=== PATIENT | female | born 1955 | race Caucasian/White ===

== ENCOUNTER 2022-03-22 15:21 | Inpatient (IN) ==
[2022-03-22] MEDS ORDERED: Isovue-370 500 ML BOTTLE IVP ONE ×2 (15:42→20:11)
[2022-03-22] MEDS ORDERED: Aspirin 325 MG TABLET PO ONE (15:43)
[2022-03-22 16:55] LABS: Basophils # 0.1 K/mcL (0.0-0.2); Basophils % 1.1 %; Monocytes % 9.1 %; Red Cell Distribution Width 17.2 % (11.5-14.5)
[2022-03-22 16:59] LABS: Eosinophils % 0.5 %; Hemoglobin 18.4 g/dL (11.5-15.4); Immature Granulocytes % 0.4 % (0-4); Lymphocytes # 1.5 K/mcL (0.6-4.6); Lymphocytes % 19.7 %; Mean Corpuscular Volume 87.9 fL (83.0-100.0); Monocytes # 0.7 K/mcL (0.0-1.3); Neutrophils # 5.2 K/mcL (1.6-8.9); Platelet Count 172 K/mcL (140-400); Red Blood Count 6.35 M/mcL (3.82-4.97); Segmented Neutrophils % 69.2 %; White Blood Count 7.5 K/mcL (4.3-11.1)
[2022-03-22 17:01] LABS: Hematocrit 55.8 % (35.3-44.9)
[2022-03-22 17:14] LABS: Albumin 3.4 g/dL (3.5-5.7); Albumin/Globulin Ratio 0.9 (1.1-2.2); Bilirubin,Indirect 1.9 mg/dL (0.0-1.0); Bilirubin,Total 2.9 mg/dL (0.3-1.0); Globulin 3.7 g/dL (2.4-3.5); Total Protein 7.1 g/dL (6.4-8.9)
[2022-03-22 18:06] LABS: INR 1.1; Prothrombin Time 12.3 Seconds (9.4-12.1)
[2022-03-22 18:09] LABS: Activated Partial Thrombo Time 26.6 Seconds (26.0-36.0)
[2022-03-22] MEDS ORDERED: Potassium Chloride Elixir 20 MEQ/15 ML UDC PO ONE (18:31)
[2022-03-22 19:49] LABS: BUN/Creatinine Ratio 26 (6-26); Blood Urea Nitrogen 25 mg/dL (8-23); Calcium 9.8 mg/dL (8.6-10.3); Carbon Dioxide 28 mEq/L (23-29); Chloride 96 mEq/L (98-107); Glucose 114 mg/dL (70-105); Osmolality,Calculated 293 (280-300); Sodium 139 mEq/L (136-145); eGFR For African Americans > 60 (> 60); eGFR For Non-African Americans 58 (> 60)
[2022-03-22] MEDS ORDERED: *HR* OxyCODONE Immed Rel 5 MG TABLET PO PRN (22:35)
[2022-03-22] MEDS ORDERED: Naloxone 0.4 MG/ML INJ IVP PRN (22:35)
[2022-03-22] MEDS ORDERED: Melatonin 3 MG TABLET PO PRN (22:35)
[2022-03-22] MEDS ORDERED: Acetaminophen 325 MG TABLET PO PRN (22:35)
[2022-03-22] MEDS ORDERED: *HR* HYDROcodone/Acet 5/325 mg TABLET PO PRN (22:35)
[2022-03-22] MEDS ORDERED: Perflutren Lipid Microsphere 1.3 ML in 0.9 % Sodium Chloride 8.7 ML IVP PRN (22:39)
[2022-03-22] MEDS ORDERED: Ipratropium/Albuterol Neb 3 ML IH PRN (23:07)
[2022-03-22] MEDS ORDERED: GI Cocktail 40 ML EACH PO ONE (23:41)
[2022-03-22] MEDS: 0.9 % Sodium Chloride 1,000 ML IVC SCH (23:50)
[2022-03-22] MEDS: Ondansetron ODT 4 MG TAB.RAPDIS SL PRN (23:50)
[2022-03-23 00:53] LABS: Adenovirus Not Detected (Not Detect); Bordetella Pertussis Not Detected (Not Detect); Chlamydophila pneumoniae Not Detected (Not Detect); Coronavirus 229E Not Detected (Not Detect); Coronavirus HKU1 Not Detected (Not Detect); Coronavirus NL63 Not Detected (Not Detect); Coronavirus OC43 Not Detected (Not Detect); Human Metapneumovirus Not Detected (Not Detect); Human Rhinovirus/Enterovirus Not Detected (Not Detect); Influenza A Subtype 2009 H1 Not Detected (Not Detect); Influenza B Not Detected (Not Detect); Mycoplasma pneumoniae Not Detected (Not Detect); Parainfluenza Virus 1 Not Detected (Not Detect); Parainfluenza Virus 2 Not Detected (Not Detect); Parainfluenza Virus 3 Not Detected (Not Detect); Parainfluenza Virus 4 Not Detected (Not Detect); Respiratory Syncytial Virus Not Detected (Not Detect); SARS-CoV-2 Not Detected (Not Detect)
[2022-03-23 03:26] LABS: Basophils # 0.1 K/mcL (0.0-0.2); Basophils % 0.9 %; Eosinophils # 0.1 K/mcL (0.0-0.6); Hematocrit 47.6 % (35.3-44.9); Hemoglobin 16.3 g/dL (11.5-15.4); Immature Granulocytes % 1.5 % (0-4); Lymphocytes # 1.6 K/mcL (0.6-4.6); Lymphocytes % 23.1 %; Mean Corpuscular HGB Conc 34.2 g/dL (31.6-35.5); Mean Corpuscular Volume 84.7 fL (83.0-100.0); Mean Platelet Volume 11.5 fL (9.4-12.4); Monocytes # 0.6 K/mcL (0.0-1.3); Neutrophils # 4.4 K/mcL (1.6-8.9); Platelet Count 173 K/mcL (140-400); Red Blood Count 5.62 M/mcL (3.82-4.97); Red Cell Distribution Width 15.4 % (11.5-14.5); Segmented Neutrophils % 64.5 %; White Blood Count 6.8 K/mcL (4.3-11.1)
[2022-03-23 03:41] LABS: Estimated Average Glucose 111 mg/dl; Hemoglobin A1C 5.5 %
[2022-03-23 04:36] LABS: BUN/Creatinine Ratio 26 (6-26); Blood Urea Nitrogen 22 mg/dL (8-23); Calcium 8.6 mg/dL (8.6-10.3); Carbon Dioxide 21 mEq/L (23-29); Chloride 100 mEq/L (98-107); Chol/HDL Ratio 4.7 (0-4.9); Cholesterol 210 mg/dL (< 200); Glucose 95 mg/dL (70-105); HDL Cholesterol 45 mg/dL (40-59); LDL Cholesterol,Calculated 128 mg/dL (< 100); Osmolality,Calculated 287 (280-300); Phosphorous 2.8 mg/dL (2.7-4.5); Sodium 137 mEq/L (136-145); Thyroid Stimulating Hormone 0.761 mcIU/mL (0.340-5.600); Triglycerides 187 mg/dL (< 150); eGFR For African Americans > 60 (> 60); eGFR For Non-African Americans > 60 (> 60)
[2022-03-23] MEDS ORDERED: Regadenoson 0.4 MG/5 ML SYRINGE IVP ONE (05:50)
[2022-03-23 06:19] LABS: Bacteria,Urine Few per hpf (None-Few); Bilirubin,Urine Small (Negative); Blood,Urine Moderate (Negative); Clarity,Urine Turbid (Clear); Color,Urine Orange (Yellow); Glucose,Urine (UA) Normal (Normal); Ketones,Urine Trace mg/dL (Negative); Leukocyte Esterase,Urine Large (Negative); Mucus,Urine Few per lpf (None-Few); Nitrite,Urine Negative (Negative); PH,Urine 6.5 pH Units (5.0-8.0); Protein,Urine 70 mg/dL (Neg-Trace); RBC,Urine 15-30 per hpf (0-3); Specific Gravity,Urine > 1.030 (1.010-1.025); Squamous Epithelial Cell,Urine Few per hpf (None-Few); WBC,Urine TNTC per hpf (0-3)
[2022-03-23] MEDS: Aspirin 81 MG TAB.CHEW PO SCH (11:33)
[2022-03-23] MEDS: Potassium Chloride Elixir 20 MEQ/15 ML UDC PO SCH ×2 (11:39→15:45)
[2022-03-23] MEDS ORDERED: *HR* FentaNYL (PF) 100 MCG/2 ML VIAL ONE (11:48)
[2022-03-23] MEDS ORDERED: *HR* Midazolam HCl 2 MG/2 ML VIAL ONE (11:48)
[2022-03-23] MEDS ORDERED: Heparin 1,000 UNITS/500 mL 500 ML ONE (11:48)
[2022-03-23] MEDS ORDERED: 0.9 % Sodium Chloride 2,000 ML ONE (11:48)
[2022-03-23] MEDS ORDERED: Nitroglycerin 1,000 MCG/5 ML VIAL IV ONE (11:49)
[2022-03-23] MEDS ORDERED: *HR* Heparin 10,000 UNIT/10 ML VIAL ONE (11:49)
[2022-03-23] MEDS ORDERED: ISOVUE-370 200 ML INFUS..BTL ONE (11:49)
[2022-03-23] MEDS: 0.9 % Sodium Chloride 1,000 ML IVC SCH (17:50)
[2022-03-23] MEDS: *HR* Rivaroxaban 10 MG TABLET PO SCH (18:06)
[2022-03-23] MEDS: Ondansetron ODT 4 MG TAB.RAPDIS SL PRN (22:52)
[2022-03-24 04:34] LABS: Basophils # 0.1 K/mcL (0.0-0.2); Basophils % 0.8 %; Eosinophils # 0.2 K/mcL (0.0-0.6); Eosinophils % 2.7 %; Hematocrit 44.5 % (35.3-44.9); Immature Granulocytes % 0.6 % (0-4); Lymphocytes # 1.3 K/mcL (0.6-4.6); Mean Corpuscular HGB Conc 32.6 g/dL (31.6-35.5); Mean Corpuscular Hemoglobin 28.2 pg (28.0-33.3); Mean Corpuscular Volume 86.4 fL (83.0-100.0); Mean Platelet Volume 10.9 fL (9.4-12.4); Monocytes # 0.6 K/mcL (0.0-1.3); Monocytes % 8.9 %; Neutrophils # 4.1 K/mcL (1.6-8.9); Platelet Count 152 K/mcL (140-400); Red Blood Count 5.15 M/mcL (3.82-4.97); Red Cell Distribution Width 15.9 % (11.5-14.5); White Blood Count 6.3 K/mcL (4.3-11.1)
[2022-03-24 04:35] LABS: Hemoglobin 14.5 g/dL (11.5-15.4)
[2022-03-24 05:08] LABS: BUN/Creatinine Ratio 27 (6-26); Blood Urea Nitrogen 19 mg/dL (8-23); Calcium 8.4 mg/dL (8.6-10.3); Carbon Dioxide 27 mEq/L (23-29); Chloride 103 mEq/L (98-107); Glucose 102 mg/dL (70-105); Osmolality,Calculated 282 (280-300); Potassium 3.6 mEq/L (3.5-5.1); Sodium 135 mEq/L (136-145); eGFR For African Americans > 60 (> 60); eGFR For Non-African Americans > 60 (> 60)
[2022-03-24] MEDS ORDERED: *HR* Enoxaparin 40 MG/0.4 ML SYRINGE SQ SCH (06:00)
[2022-03-24] MEDS: Aspirin 81 MG TAB.CHEW PO SCH (09:06)
[2022-03-24] MEDS: Sucralfate 1 GM TABLET PO SCH ×3 (11:53→21:41)
[2022-03-24] MEDS: *HR* Rivaroxaban 10 MG TABLET PO SCH (17:28)
[2022-03-25] MEDS: Ondansetron ODT 4 MG TAB.RAPDIS SL PRN (00:14)
[2022-03-25] MEDS: Sucralfate 1 GM TABLET PO SCH ×4 (06:34→22:03)
[2022-03-25 06:45] LABS: BUN/Creatinine Ratio 21 (6-26); Blood Urea Nitrogen 16 mg/dL (8-23); Calcium 8.4 mg/dL (8.6-10.3); Carbon Dioxide 26 mEq/L (23-29); Chloride 102 mEq/L (98-107); Glucose 112 mg/dL (70-105); Osmolality,Calculated 276 (280-300); Potassium 3.6 mEq/L (3.5-5.1); Sodium 132 mEq/L (136-145); eGFR For African Americans > 60 (> 60); eGFR For Non-African Americans > 60 (> 60)
[2022-03-25] MEDS: Aspirin 81 MG TAB.CHEW PO SCH (09:17)
[2022-03-25] MEDS: 0.9 % Sodium Chloride 1,000 ML IVC SCH ×2 (11:29→22:03)
[2022-03-25] MEDS: *HR* Rivaroxaban 10 MG TABLET PO SCH (17:07)
[2022-03-25] MEDS: Pantoprazole 40 MG VIAL IVP SCH (17:08)
[2022-03-26 04:03] LABS: BUN/Creatinine Ratio 21 (6-26); Blood Urea Nitrogen 15 mg/dL (8-23); Calcium 7.9 mg/dL (8.6-10.3); Carbon Dioxide 24 mEq/L (23-29); Chloride 104 mEq/L (98-107); Glucose 101 mg/dL (70-105); Osmolality,Calculated 279 (280-300); Potassium 3.5 mEq/L (3.5-5.1); Sodium 134 mEq/L (136-145); eGFR For African Americans > 60 (> 60); eGFR For Non-African Americans > 60 (> 60)
[2022-03-26] MEDS: Pantoprazole 40 MG VIAL IVP SCH ×2 (05:05→17:01)
[2022-03-26] MEDS: 0.9 % Sodium Chloride 1,000 ML IVC SCH ×2 (08:02→17:00)
[2022-03-26] MEDS: Aspirin 81 MG TAB.CHEW PO SCH (08:06)
[2022-03-26] MEDS: Sucralfate 1 GM TABLET PO SCH ×4 (08:06→20:15)
[2022-03-26] MEDS ORDERED: Lidocaine -MPF 2% 2 ML VIAL ONE (11:35)
[2022-03-26] MEDS ORDERED: *HR* Propofol 200 MG/20 ML VIAL IVP ONE ×2 (11:35→12:40)
[2022-03-26] MEDS: *HR* Rivaroxaban 10 MG TABLET PO SCH (17:10)
[2022-03-27] MEDS: 0.9 % Sodium Chloride 1,000 ML IVC SCH (03:10)
[2022-03-27 04:22] LABS: BUN/Creatinine Ratio 19 (6-26); Blood Urea Nitrogen 13 mg/dL (8-23); Calcium 7.7 mg/dL (8.6-10.3); Carbon Dioxide 23 mEq/L (23-29); Chloride 106 mEq/L (98-107); Glucose 98 mg/dL (70-105); Osmolality,Calculated 286 (280-300); Potassium 3.4 mEq/L (3.5-5.1); Sodium 138 mEq/L (136-145); eGFR For African Americans > 60 (> 60); eGFR For Non-African Americans > 60 (> 60)
[2022-03-27] MEDS: Pantoprazole 40 MG VIAL IVP SCH (05:09)
[2022-03-27] MEDS: Sucralfate 1 GM TABLET PO SCH (07:37)
[2022-03-27] MEDS: Aspirin 81 MG TAB.CHEW PO SCH (07:38)
[2022-03-27] MEDS ORDERED: Moderna Covid-19 Vaccine 100MCG/0.5mL IM ONE (08:13)
[2022-03-27 09:10] LABS: Adenovirus Not Detected (Not Detect); Bordetella Pertussis Not Detected (Not Detect); Chlamydophila pneumoniae Not Detected (Not Detect); Coronavirus 229E Not Detected (Not Detect); Coronavirus HKU1 Not Detected (Not Detect); Coronavirus NL63 Not Detected (Not Detect); Coronavirus OC43 Not Detected (Not Detect); Human Metapneumovirus Not Detected (Not Detect); Human Rhinovirus/Enterovirus Not Detected (Not Detect); Influenza A Subtype 2009 H1 Not Detected (Not Detect); Influenza B Not Detected (Not Detect); Mycoplasma pneumoniae Not Detected (Not Detect); Parainfluenza Virus 1 Not Detected (Not Detect); Parainfluenza Virus 2 Not Detected (Not Detect); Parainfluenza Virus 3 Not Detected (Not Detect); Parainfluenza Virus 4 Not Detected (Not Detect); Respiratory Syncytial Virus Not Detected (Not Detect); SARS-CoV-2 Not Detected (Not Detect)
[2022-03-27 11:07] VITALS: BP 121/86; PULSE 66; TEMP 97.6; O2SAT 95
== END 2022-03-27 12:46 | DRG 392 ==
LOC: 3BNU 15:21 → EMEROOARM 15:21 → SUATTDRO 22:39 → 3BNU 23:09
PROVIDERS: ADMIT Internal Medicine; ATTEND Registered Nurse
PROC: ENDOEBX (2022-03-26 14:35)